=== PATIENT | male | born 1990 | race African-American/Black ===

== ENCOUNTER 2024-07-20 08:21 | Emergency (ER) | payer OTHER ==
[~2024-07-20] VITALS: Ht 172.7 cm; Wt 118.4 kg
[2024-07-20] MEDS: PANTOPRAZOLE 40 MG TAB PO ONE (08:59)
[2024-07-20] MEDS ORDERED: PANT40TA2 PO (09:12)
[2024-07-20 09:39] LABS: Basophils # (auto) 0 10 ^3/uL (0-0.2); Basophils % (auto) 0.5 % (0.0-2.0); Chloride 108 mmol/L (98-107); Eosinophils # (auto) 0.1 10 ^3/uL (0-0.8); Eosinophils % (auto) 4.1 % (0.0-7.0); Hematocrit 41.8 % (41.0-53.0); Hemoglobin 14.2 g/dL (13.5-17.5); Lymphocytes # (auto) 0.8 10 ^3/uL (0.4-5.4); Lymphocytes % (auto) 28.1 % (10.0-50.0); Mean Corpuscular Hemoglobin 28.5 pg (28.0-32.0); Mean Corpuscular Volume 83.9 fL (80.0-100.0); Monocytes # (auto) 0.3 10 ^3/uL (0-1.3); Neutrophils # (auto) 1.5 10 ^3/uL (1.6-8.6); Neutrophils % (auto) 55.3 % (37.0-80.0); Nucleated Red Blood Cells % 0.2 %; Platelet Count (auto) 183 10^3/uL (140-450); Potassium 3.9 mmol/L (3.5-5.1); Red Blood Cells 4.98 10^6/uL (4.5-5.90); Sodium 142 mmol/L (136-145); White Blood Cell 2.8 10^3/uL (4.4-10.8)
[2024-07-20 09:40] LABS: Anion Gap 7 (5-15); Carbon Dioxide 27 mmol/L (20-31)
[2024-07-20 09:41] LABS: Calcium 10.4 mg/dL (8.7-10.4)
[2024-07-20 09:45] LABS: BUN/Creatinine Ratio 5.9 (10.0-20.0); Blood Urea Nitrogen 7 mg/dL (9-23); Glucose 75 mg/dL (74-106)
[2024-07-20 12:30] VITALS: BP 162/93; PULSE 60; RESP 16; TEMP 97.1; O2SAT 97
== END 2024-07-20 12:32 | disposition home or self-care (01) ==
LOC: ER 08:21
DX: K29.60 Other gastritis without bleeding (principal)
CPT/HCPCS: 36415; 80048; 85025